=== PATIENT | female | born 1950 | race Caucasian/White ===

== ENCOUNTER 2018-01-01 16:25 | Emergency (ER) | payer BC ==
[2018-01-01 16:40] VITALS: BP 152/87
--- NOTE | 2018-01-01 17:48 | UC ---
Chace Devine Nikita, scribed for Sonny Bauman MD on 01/01/18 at 1658 . General HPI - HPI Summary HPI Summary: This patient is a 67 year old F presenting to [facility] with a chief complaint of nasal congestion since 5 days ago. The CC is described as increasing throbbing pain with sinus pressure. The patient rates the pain 6/10 in severity. Symptoms aggravated by nothing. Symptoms alleviated by nothing. Patient reports nasal congestion, post nasal drip, fever, ALFREDO, left maxillary sinus tenderness, and purulent discharge from the nose. Patient denies cough and sore throat. Patient was recently traveling by plane. - History of Current Complaint Chief Complaint: UCGeneralIllness Stated Complaint: SINUS PAIN,CONGESTION Hx Obtained From: Patient Onset/Duration: Sudden Onset, Lasting Days, Still Present, Worse Since - earlier today Onset Severity: Moderate Current Severity: Moderate Pain Intensity: 6 Aggravating: nothing Alleviating: nothing Associated Signs & Symptoms: Positive: Other - Patient reports nasal congestion , post nasal drip, fever, ALFREDO, left maxillary sinus tenderness, and purulent discharge from the nose. Patient denies cough and sore throat. - Allergy/Home Medications Allergies/Adverse Reactions: Allergies Allergy/AdvReac Type Severity Reaction Status Date / Time Demerol AdvReac Severe GI Upset Uncoded 01/01/18 16:40 PMH/Surg Hx/FS Hx/Imm Hx Endocrine History: Diabetes - pre-DM Cardiovascular History: Hypertension Respiratory History: Other Other Respiratory History: No asthma - Surgical History Surgical History: Yes Surgery Procedure, Year, and Place: ENDOMETRIAL ABLATION AND TUBAL LIGATION - Family History Known Family History: Positive: Cardiac Disease, Hypertension, Diabetes - father and brother - Social History Alcohol Use: Rare Substance Use Type: None Smoking Status (MU): Never Smoked Tobacco Review of Systems Constitutional: Fever ENT: Other - nasal congestion, post nasal drip, left maxillary sinus tenderness , and purulent discharge from the nose; denies sore throat Respiratory: Other - denies cough Neurological: Headache All Other Systems Reviewed And Are Negative: Yes Physical Exam - Summary Physical Exam Summary: VITAL SIGNS: Reviewed. GENERAL: ~Patient is a well-developed and nourished FEMALE who is lying comfortable in the stretcher. ~Patient is not in any acute respiratory distress. HEAD AND FACE: Normocephalic, L sinus tenderness, greenish nasal discharge. EYES: PERRLA, EOMI x 2. EARS: Hearing grossly intact. MOUTH: Oropharynx within normal limits. NECK: Supple, trachea is midline, no adenopathy, no JVD, no carotid bruit. CHEST: Symmetric, no tenderness at palpation LUNGS: Clear to auscultation bilaterally. No wheezing or crackles. CVS: Regular rate and rhythm, S1 and S2 present, no murmurs or gallops appreciated. ABDOMEN: Soft, non-tender. Bowel sounds are normal. No abdominal abnormal pulsations. EXTREMITIES: Full ROM in all major joints, no edema, no cyanosis or clubbing. NEURO: Alert and oriented x 3. No acute neurological deficits. Speech is normal and follows commands. SKIN: Dry and warm Triage Information Reviewed: Yes Vital Signs: Initial Vital Signs Temp 97.9 F 01/01/18 16:35 Pulse 67 01/01/18 16:35 Resp 19 01/01/18 16:35 BP 152/87 01/01/18 16:35 Pulse Ox 97 01/01/18 16:35 Vital Signs Reviewed: Yes Course/Dx - Course Course Of Treatment: Pateint seems to have acute sinusitis for more than 10 days , thus , she will tretaed as acute sinusitis with antibiotics. The pt is hemodynamically stable, alert and oriented x3. The patient was found to have increased BP in UC. The patient will follow up with PCP for better control of BP. I discussed all the findings and test results with the patient. Patient was instructed to return to the urgent care or go to ER immediately if any of the symptoms return or worsens. Plan of care was discussed with the patient, and patient understands and agrees. All questions were answered to patient satisfaction. There were no further complaints or concerns. - Differential Dx - Multi-Symptom Differential Diagnoses: Other - OM, Pharyngitis, sinusitis. Provider Diagnoses: sinusitis Discharge - Sign-Out/Discharge Documenting (check all that apply): Discharge - Discharge Plan Condition: Stable Disposition: HOME Prescriptions: Amoxicillin/Clavulanate TAB* [Augmentin TAB 875*] 875 mg PO BID #20 tab Fluticasone NASAL SPRAY 50MCG* [Flonase NASAL SPRAY 50MCG*] 2 spray BOTH NARES DAILY #1 btl Patient Education Materials: Sinusitis (ED) Referrals: Jorge Wiggins MD [Primary Care Provider] - Additional Instructions: Take medications as instructed Increase your fluid intake FOLLOW UP WITH YOUR PRIMARY CARE PROVIDER WITHIN ONE WEEK FOR HIGH BLOOD PRESSURE NOTED TODAY. RETURN TO URGENT CARE FOR ANY WORSENING OR NEW SYMPTOMS. - Billing Disposition and Condition Condition: STABLE Disposition: HOME The documentation as recorded by the Chace espinosa Nikita accurately reflects the service I personally performed and the decisions made by me, Sonny Bauman MD.
== END 2018-01-01 17:00 | disposition home or self-care (01) ==
LOC: UCEAST 16:25
DX: J32.9 Chronic sinusitis, unspecified (principal); R73.03 Prediabetes; I10 Essential (primary) hypertension; Z88.5 Allergy status to narcotic agent
CPT/HCPCS: 99213; G0463

== ENCOUNTER 2018-11-02 13:37 | Emergency (ER) | payer BC ==
--- NOTE | 2018-11-02 15:12 | UC ---
Hip/Pelvis Pain - HPI Summary HPI Summary: Patient is 68-year-old female that slipped and fell on ice about 5 AM this morning. She is complaining of right hip pain in the region of the greater trochanter. She is able to bear weight. Her pain level seated is about 3 or 4 out of 10. Her pain level weightbearing as 7-8 out of 10. Denies any other injury. She has had problems with her right hip on and off for years. - History Of Current Complaint Chief Complaint: UCLowerExtremity Stated Complaint: R HIP COMPLAINT Time Seen by Provider: 11/02/18 15:05 Hx Obtained From: Patient Onset/Duration: Sudden Onset Timing: Constant Severity Initially: Severe Severity Currently: Mild Pain Intensity: 3 Pain Scale Used: 0-10 Numeric Location: Discrete At: Character Of Pain: Dull, Aching, Throbbing Aggravating Factor(s): Movement, Weight Bearing Alleviating Factor(s): Rest Associated Signs And Symptoms: Positive: Negative - Allergies/Home Medications Allergies/Adverse Reactions: Allergies Allergy/AdvReac Type Severity Reaction Status Date / Time Demerol AdvReac Severe GI Upset Uncoded 01/01/18 16:40 PMH/Surg Hx/FS Hx/Imm Hx Previously Healthy: Yes Endocrine History: Dyslipidemia Cardiovascular History: Hypertension - Surgical History Surgical History: Yes Surgery Procedure, Year, and Place: ENDOMETRIAL ABLATION AND TUBAL LIGATION - Family History Known Family History: Positive: Cardiac Disease, Hypertension, Diabetes - father and brother - Social History Alcohol Use: Rare Substance Use Type: None Smoking Status (MU): Never Smoked Tobacco Review of Systems All Other Systems Reviewed And Are Negative: Yes Constitutional: Positive: Negative Skin: Positive: Negative Eyes: Positive: Negative ENT: Positive: Negative Respiratory: Positive: Negative Cardiovascular: Positive: Negative Gastrointestinal: Positive: Negative Genitourinary: Positive: Negative Motor: Positive: Negative Neurovascular: Positive: Negative Musculoskeletal: Positive: Arthralgia Neurological: Positive: Negative Psychological: Positive: Negative Physical Exam Triage Information Reviewed: Yes Appearance: Well-Appearing, No Pain Distress, Well-Nourished Vital Signs: Initial Vital Signs Temp 98.3 F 11/02/18 13:48 Pulse 57 11/02/18 13:48 Resp 17 11/02/18 13:48 BP 128/71 11/02/18 13:48 Pulse Ox 98 11/02/18 13:48 Vital Signs Reviewed: Yes Eyes: Positive: Conjunctiva Clear ENT: Positive: Hearing grossly normal. Negative: Nasal congestion, Nasal drainage, Muffled voice Neck: Positive: Supple, Nontender, No Lymphadenopathy Respiratory: Positive: Lungs clear, Normal breath sounds, No respiratory distress, No accessory muscle use Cardiovascular: Positive: RRR, No Murmur Musculoskeletal: Positive: ROM Limited @ - right hip -pain with internal rotation/tender greater troch-distal n/v intact Neurological: Positive: Alert Psychological Exam: Normal Skin Exam: Normal Diagnostics - Radiology No standard instances Radiology Interpretation Completed By: Radiologist Summary of Radiographic Findings: no fx Hip Injury Course/Dx - Differential Dx/Diagnosis Provider Diagnosis: Contusion of right hip Discharge - Sign-Out/Discharge Documenting (check all that apply): Patient Departure All imaging exams completed and their final reports reviewed: Yes - Discharge Plan Condition: Stable Disposition: HOME Patient Education Materials: Contusion in Adults (ED) Referrals: Jorge Wiggins MD [Primary Care Provider] - 2 Weeks (if not better) - Billing Disposition and Condition Condition: STABLE Disposition: Home
[2018-11-02 16:03] VITALS: BP 122/70
== END 2018-11-02 16:02 | disposition home or self-care (01) ==
LOC: UCEAST 13:37
DX: S70.01XA Contusion of right hip, initial encounter (principal); W00.0XXA Fall on same level due to ice and snow, initial encounter; Y92.9 Unspecified place or not applicable; Z88.5 Allergy status to narcotic agent
CPT/HCPCS: 99211; G0463

== ENCOUNTER 2022-12-07 09:09 | Inpatient (IN) ==
[2022-12-07 09:33] LABS: ABS Basophils 0.1 10^3/ul (0-0.2); ABS Eosinophils 0.9 10^3/ul (0-0.6); ABS Lymphocytes 2.5 10^3/ul (1.0-4.8); ABS Monocytes 0.5 10^3/ul (0-0.8); ABS Neutrophils 2.3 10^3/ul (1.5-7.7); Eosinophil % 13.6 %; Hematocrit 45 % (35-47); Lymphocyte % 39.3 %; Mean Corpuscular HGB Conc 34 g/dL (31-36); Mean Corpuscular Hemoglobin 30 pg (27-31); Mean Corpuscular Volume 89 fL (80-97); Mean Platelet Volume 8.8 fL (7.4-10.4); Platelet Count 206 10^3/uL (150-450); Red Blood Count 5.03 10^6 /uL (3.70-4.87); Red Cell Distribution Width 14 % (10-15); White Blood Count 6.4 10^3/uL (3.5-10.8)
[2022-12-07 09:52] LABS: INR 0.99 (0.88-1.18)
[2022-12-07 10:31] LABS: Albumin 4.3 g/dL (3.2-5.2); Albumin/Globulin Ratio 1.6 (1-3); Calcium 9.6 mg/dL (8.6-10.3); Creatinine, Serum 0.79 mg/dL (0.51-0.95); Globulin 2.7 g/dL (2-4); Potassium 4.3 mmol/L (3.5-5.0); Total Bilirubin 0.5 mg/dL (0.2-1.0); eGFR CKD-EPI 80.4 (>60)
[2022-12-07 11:02] LABS: High Sensitivity Troponin 1 Hr 5 pg/mL (<15)
[2022-12-07 14:42] LABS: Magnesium 1.8 mg/dL (1.9-2.7)
[2022-12-07] MEDS ORDERED: Sulfur Hexaflouride MICROSPHR 25 MG VIAL ONE (15:07)
[2022-12-07] MEDS ORDERED: Magnesium Sulfate 2 gm BAG 2 GM/50 ML BAG IVPB ONE (15:13)
[2022-12-07] MEDS ORDERED: Isosorbide Mononit ER 60mg TAB PO ONE (15:52)
[2022-12-07] MEDS: Enoxaparin 40 MG/0.4 ML SYR SUBCUT SCH (20:27)
[2022-12-08] MEDS ORDERED: NS 0.9% 1000 ml BAG 1,000 ML IV SCH ×2 (06:00→14:15)
[2022-12-08 06:22] LABS: ABS Basophils 0.1 10^3/ul (0-0.2); ABS Eosinophils 0.9 10^3/ul (0-0.6); ABS Lymphocytes 2.7 10^3/ul (1.0-4.8); ABS Monocytes 0.6 10^3/ul (0-0.8); ABS Neutrophils 3.4 10^3/ul (1.5-7.7); Eosinophil % 11.3 %; Hematocrit 38 % (35-47); Lymphocyte % 35.6 %; Mean Corpuscular HGB Conc 35 g/dL (31-36); Mean Corpuscular Hemoglobin 31 pg (27-31); Mean Corpuscular Volume 88 fL (80-97); Mean Platelet Volume 9.2 fL (7.4-10.4); Nucleated Red Blood Cells % 0.1; Platelet Count 187 10^3/uL (150-450); Red Blood Count 4.25 10^6 /uL (3.70-4.87); Red Cell Distribution Width 14 % (10-15); White Blood Count 7.6 10^3/uL (3.5-10.8)
[2022-12-08 06:28] LABS: INR 1.12 (0.88-1.18)
[2022-12-08 06:37] LABS: Calcium 8.9 mg/dL (8.6-10.3); Creatinine, Serum 0.87 mg/dL (0.51-0.95); Magnesium 2.1 mg/dL (1.9-2.7); Potassium 4.5 mmol/L (3.5-5.0); eGFR CKD-EPI 71.6 (>60)
[2022-12-08] MEDS ORDERED: Midazolam 5 mg/5 ml VIAL 1 mg/ml 5 ml VIAL (5 mg) ONE (12:01)
[2022-12-08] MEDS ORDERED: Heparin 2 UNITS/ML 1000 mls 3,000 ML IV ONE (12:01)
[2022-12-08] MEDS ORDERED: fentaNYL 100 mcg/2 ml 50 MCG/ML VIAL ONE (12:01)
[2022-12-08] MEDS ORDERED: Heparin 1,000 UNIT/ML 10 ml (10,000 UNITS) CATHLAB/DIALYSIS ONE (12:01)
[2022-12-08] MEDS ORDERED: VERAPAMIL 2.5 MG/ML 2 ML VIAL ** 5 mg/2 ml ONE (12:01)
[2022-12-08] MEDS ORDERED: Lidocaine 1% MPF 5 ML VIAL ONE (12:02)
[2022-12-08] MEDS ORDERED: Iohexol 350 (CONTRAST) 100 ML PAK IV ONE (12:02)
[2022-12-08] MEDS ORDERED: nitroGLYCERIN DRIP 25,000 MCG/250 ML BTL ONE (12:02)
[2022-12-08] MEDS ORDERED: Bivalirudin 250 MG VIAL ONE (13:18)
[2022-12-08] MEDS ORDERED: Eptifibatide IV (Load dose) 2 MG/ML 10 ml VIAL ONE ×2 (13:42→13:50)
[2022-12-08] MEDS: Enoxaparin 40 MG/0.4 ML SYR SUBCUT SCH (18:13)
[2022-12-09 04:54] LABS: Hematocrit 37 % (35-47); Mean Corpuscular HGB Conc 35 g/dL (31-36); Mean Corpuscular Hemoglobin 31 pg (27-31); Mean Corpuscular Volume 88 fL (80-97); Mean Platelet Volume 8.9 fL (7.4-10.4); Platelet Count 171 10^3/uL (150-450); Red Blood Count 4.25 10^6 /uL (3.70-4.87); Red Cell Distribution Width 14 % (10-15); White Blood Count 5.3 10^3/uL (3.5-10.8)
[2022-12-09 05:27] LABS: Calcium 8.9 mg/dL (8.6-10.3); Creatinine, Serum 0.75 mg/dL (0.51-0.95); Magnesium 2.2 mg/dL (1.9-2.7); Potassium 4.1 mmol/L (3.5-5.0); eGFR CKD-EPI 85.6 (>60)
[2022-12-09 12:07] VITALS: BP 114/71
== END 2022-12-09 12:05 | disposition home or self-care (01) | DRG 247 ==
LOC: EDHOLD 09:09 → ED 09:09 → EDHOLD 17:42 → MEDTELE 18:03 → ICU 12-08 14:15
PROVIDERS: ADMIT Hospitalist; ATTEND Hospitalist